=== PATIENT | female | born 1970 | race Caucasian/White ===

== ENCOUNTER 2017-03-26 15:49 | Emergency (ER) | payer BC ==
[2017-03-26 15:49] VITALS: BMI 33.3
[2017-03-26 16:00] VITALS: BP 145/92; PULSE 69; TEMP 98
--- NOTE | 2017-03-26 17:04 | ED PDOC ---
Arrival/HPI - General Chief Complaint: Lower Extremity Problem/Injury Time Seen by Provider: 03/26/17 15:58 Historian: Patient - History of Present Illness Narrative History of Present Illness (Text): 03/26/17 17:03 A 46 year old female with a past medical history of sciatica, presents to the emergency department with 1 month duration pain in the left foot heel. She states that it hurts when she stands, but is currently in no pain. She states that she wonders if the pain is due to her sciatica. She denies any trauma or injury, headache, dizziness, nausea, vomiting, diarrhea, chest pain, abdominal pain, or any other complaint. Time/Duration: Other (1 month) Symptom Course: Unchanged Activities at Onset: Rest, Light Context: Home Past Medical History - Provider Review Nursing Documentation Reviewed: Yes - Past History Past History: No Previous - Infectious Disease Hx of Infectious Diseases: None - Cardiac Hx Cardiac Disorders: Yes Hx Hypertension: Yes - Genitourinary/Gynecological Hx Genitourinary Disorders: Yes Other/Comment: over active bladder. - Psychiatric Hx Substance Use: No - Surgical History Hx Section: Yes (x2) - Anesthesia Hx Anesthesia: Yes Hx Anesthesia Reactions: No Hx Malignant Hyperthermia: No Family/Social History - Physician Review Nursing Documentation Reviewed: Yes Family/Social History: No Known Family HX Smoking Status: Never Smoked Hx Alcohol Use: No Hx Substance Use: No Allergies/Home Meds Allergies/Adverse Reactions: Allergies No Known Allergies Allergy (Verified 03/26/17 15:57) Home Medications: Home Meds Medication Instructions Recorded Confirmed Omeprazole [Omeprazole] 40 mg PO DAILY 03/26/17 03/26/17 amLODIPine [Norvasc] 10 mg PO DAILY 03/26/17 03/26/17 Review of Systems - Physician Review All systems were reviewed & negative as marked: Yes - Review of Systems Constitutional: absent: Fevers, Night Sweats Respiratory: absent: SOB Cardiovascular: absent: Chest Pain, Syncope Gastrointestinal: absent: Diarrhea, Nausea, Vomiting Musculoskeletal: Other (left foot heel pain) Neurological: absent: Headache, Dizziness Physical Exam Vital Signs Reviewed: Yes Vital Signs Temp Pulse Resp BP Pulse Ox 03/26/17 17:23 16 98 03/26/17 15:58 98.0 F 69 19 145/92 H 97 Temperature: Afebrile Blood Pressure: Hypertensive Pulse: Regular Respiratory Rate: Normal Appearance: Positive for: Well-Appearing, Non-Toxic, Comfortable Pain Distress: None Mental Status: Positive for: Alert and Oriented X 3 - Systems Exam Head: Present: Atraumatic, Normocephalic Pupils: Present: PERRL Extroacular Muscles: Present: EOMI Conjunctiva: Present: Normal Mouth: Present: Moist Mucous Membranes Neck: Present: Normal Range of Motion Respiratory/Chest: Present: Clear to Auscultation, Good Air Exchange. No: Respiratory Distress, Accessory Muscle Use Cardiovascular: Present: Regular Rate and Rhythm, Normal S1, S2. No: Murmurs Abdomen: Present: Normal Bowel Sounds. No: Tenderness, Distention, Peritoneal Signs Back: Present: Normal Inspection Upper Extremity: Present: Normal Inspection. No: Cyanosis, Edema Lower Extremity: Present: Normal Inspection. No: Edema Neurological: Present: GCS=15, CN II-XII Intact, Speech Normal Skin: Present: Warm, Dry, Normal Color. No: Rashes Psychiatric: Present: Alert, Oriented x 3, Normal Insight, Normal Concentration Medical Decision Making ED Course and Treatment: 03/26/17 17:09 Impression: A 46 year old female with one month duration pain in the left foot heel that hurts when she stands, but is currently in no pain. Differential Diagnosis included but are not limited to: Heel Pain Plan: -- Left Foot X-Ray -- Toradol -- Reassess and disposition Prior Visits: Notes and results from previous visits were reviewed. Patient was last seen in the emergency department on Progress Notes: 03/26/17 17:00: Left Foot X-Ray Normal 03/26/17 17:00: Will discharge home. Advised to take Naproxen for pain and to f/ u with her v[facility]. She said she previously saw a [facility] who gave her in injection. She will try that again. - RAD Interpretation Radiology Orders: 03/26/17 16:06 FOOT LEFT 3 VIEWS ROUTINE [RAD] Stat - Medication Orders Current Medication Orders: Discontinued Medications Ketorolac Tromethamine (Toradol) 60 mg IM STAT STA Stop: 03/26/17 17:13 Last Admin: 03/26/17 17:23 Dose: 60 mg - Scribe Statement The provider has reviewed the documentation as recorded by the Marlen Donald Provider Scribe Attestation: All medical record entries made by the Scribe were at my direction and personally dictated by me. I have reviewed the chart and agree that the record accurately reflects my personal performance of the history, physical exam, medical decision making, and the department course for this patient. I have also personally directed, reviewed, and agree with the discharge instructions and disposition. Disposition/Present on Arrival - Present on Arrival Any Indicators Present on Arrival: No History of DVT/PE: No History of Uncontrolled Diabetes: No Urinary Catheter: No History of Decub. Ulcer: No History Surgical Site Infection Following: None - Disposition Have Diagnosis and Disposition been Completed?: Yes Diagnosis: Heel pain Disposition: HOME/ ROUTINE Disposition Time: 17:39 Patient Plan: Discharge Condition: IMPROVED Discharge Instructions (ExitCare): Arthralgia (ED) Additional Instructions: Ms Christy, thank you for letting us take care of you today. Your provider was Dr. Murdock. You were treated for Heel Pain. The emergency medical care you received today was directed at your acute symptoms. If you were prescribed any medication, please fill it and take as directed. It may take several days for your symptoms to resolve. Return to the Emergency Department if your symptoms worsen, do not improve, or if you have any other problems. Please contact your doctor or call one of the physicians/clinics you have been referred to that are listed on the Patient Visit Information form that is included in your discharge packet. Bring any paperwork you were given at discharge with you along with any medications you are taking to your follow up visit. Our treatment cannot replace ongoing medical care by a primary care provider (PCP) outside of the emergency department. Thank you for allowing the [facility] team to be part of your care today. If you had an X-Ray or CT scan: A Radiologist will review the ED reading if any change in treatment is needed we will contact you. If you had a blood, urine, or wound culture: It will take several days for the results, if any change in treatment is needed we will contact you. If you had an STI test: It will take 48 hours for the results. Please call after 1 week if you have not heard back. Prescriptions: Naproxen 500 mg PO BID PRN #30 tab PRN Reason: Pain, Moderate (4-7) Referrals: Holland Hutchinson MD [Primary Care Provider] - Follow up with primary Forms: [employer] (Ecuadorean), WORK NOTE
[2017-03-26 17:24] VITALS: RESP 16; O2SAT 98
--- NOTE | 2017-03-27 08:14 | RAD ---
PROCEDURE: Left Foot Radiographs. HISTORY: left heel pain COMPARISON: None. FINDINGS: BONES: Normal. No fracture. JOINTS: Normal. SOFT TISSUES: Normal. OTHER FINDINGS: None. IMPRESSION: Normal left foot radiographs.
== END 2017-03-26 17:24 | disposition home or self-care (01) ==
LOC: ED 15:49
DX: M79.672 Pain in left foot (principal)
CPT/HCPCS: 73630; 96372; 99283; J1885

== ENCOUNTER 2017-08-11 23:06 | Emergency (ER) | payer BC ==
[2017-08-11 23:06] VITALS: BMI 33.3
[2017-08-11 23:31] VITALS: TEMP 97.4
--- NOTE | 2017-08-11 23:36 | ED PDOC ---
Arrival/HPI - General Chief Complaint: Back Pain Time Seen by Provider: 08/11/17 23:09 Historian: Patient - History of Present Illness Narrative History of Present Illness (Text): 08/11/17 23:36 46 year old female, whose past medical history includes sciatica, presents to the emergency department complaining of sudden mid back pain for the past 8-9 hours. Patient reports the pain worsens when she takes deep breathes. pain is her left upper back to left flank. Patient denies any injuries. Patient denies any fevers, chills, chest pain, shortness of breath, abdominal pain, nausea, vomiting, diarrhea, neck pain, urinary/bowel changes, headache, dizziness, or any other complaint. PMD: Dr. Hutchinson 08/12/17 03:11 Time/Duration: Other (8-9 hours) Symptom Onset: Sudden Symptom Course: Unchanged Activities at Onset: Light Context: Home Past Medical History - Provider Review Nursing Documentation Reviewed: Yes - Past History Past History: No Previous - Infectious Disease Hx of Infectious Diseases: None - Cardiac Hx Cardiac Disorders: Yes Hx Hypertension: Yes - Genitourinary/Gynecological Hx Genitourinary Disorders: Yes Other/Comment: over active bladder. - Psychiatric Hx Substance Use: No - Surgical History Hx Section: Yes (x2) - Anesthesia Hx Anesthesia: Yes Hx Anesthesia Reactions: No Hx Malignant Hyperthermia: No Family/Social History - Physician Review Nursing Documentation Reviewed: Yes Family/Social History: No Known Family HX Smoking Status: Never Smoked Hx Alcohol Use: No Hx Substance Use: No Allergies/Home Meds Allergies/Adverse Reactions: Allergies No Known Allergies Allergy (Verified 03/26/17 15:57) Home Medications: Home Meds Medication Instructions Recorded Confirmed Omeprazole [Omeprazole] 40 mg PO DAILY 03/26/17 08/11/17 amLODIPine [Norvasc] 10 mg PO DAILY 03/26/17 08/11/17 Review of Systems - Physician Review All systems were reviewed & negative as marked: Yes - Review of Systems Constitutional: absent: Fevers, Other (Chills) Respiratory: absent: SOB Cardiovascular: absent: Chest Pain Gastrointestinal: absent: Diarrhea, Nausea, Vomiting Genitourinary Female: absent: Dysuria, Frequency, Hematuria Musculoskeletal: Back Pain. absent: Neck Pain Neurological: absent: Headache, Dizziness Physical Exam Vital Signs Reviewed: Yes Vital Signs Temp Pulse Resp BP Pulse Ox 08/12/17 02:05 68 17 132/74 100 08/12/17 01:06 70 17 135/75 100 08/11/17 23:06 97.4 F L 71 19 140/99 H 99 Temperature: Afebrile Blood Pressure: Hypertensive Pulse: Regular Respiratory Rate: Normal Appearance: Positive for: Well-Appearing, Non-Toxic, Comfortable Pain Distress: None Mental Status: Positive for: Alert and Oriented X 3 - Systems Exam Head: Present: Atraumatic, Normocephalic Pupils: Present: PERRL Extroacular Muscles: Present: EOMI Conjunctiva: Present: Normal Mouth: Present: Moist Mucous Membranes Neck: Present: Normal Range of Motion Respiratory/Chest: Present: Clear to Auscultation, Good Air Exchange. No: Respiratory Distress, Accessory Muscle Use Cardiovascular: Present: Regular Rate and Rhythm, Normal S1, S2. No: Murmurs Abdomen: Present: Normal Bowel Sounds. No: Tenderness, Distention, Peritoneal Signs Back: Present: Normal Inspection, Other (Parathoracic Tenderness). No: CVA Tenderness Upper Extremity: Present: Normal Inspection. No: Cyanosis, Edema Lower Extremity: Present: Normal Inspection. No: Edema Neurological: Present: GCS=15, CN II-XII Intact, Speech Normal Skin: Present: Warm, Dry, Normal Color. No: Rashes Psychiatric: Present: Alert, Oriented x 3, Normal Insight, Normal Concentration Medical Decision Making ED Course and Treatment: 08/11/17 23:36 Impression: 46 year old female presents complaining of mid back pain that worsens when breathing for the past 8-9 hours. consider pe, msk pain, renal colic. Plan: -- Labs -- Chest X-ray Two Views -- Toradol -- HCG, Qualit Urine -- Urinalysis -- Urinalysis W/ Micro -- Reassess and disposition Prior Visits: Notes and results from previous visits were reviewed. Patient was last seen in the emergency department on 03/26/17 presents complaining of 1 month duration of left foot heel pain. Progress Notes: 08/11/17 23:58 EKG shows NSR at [address]/T wave changes. Interpreted by me. 08/12/17 00:27 CXR Impression: As read by EVIE hernandez. 08/12/17 00:36 Labs were reviewed and showed D-Dimer, Quantitative 290 and small blood in Urine. Plan: -- CT Abd & Pelvis -- CT Angio Chest PE Protocol 08/12/17 01:38 Patient is currently eating Domlucía tuckera with no acute distress. EXAM: CT Abdomen and Pelvis Without Intravenous Contrast Dictated and Authenticated by: Cortez Do MD 08/12/2017 1:43 AM IMPRESSION: 1. Right ovarian hypodense cyst measuring 4.4 x 5.2 cm.If clinically warranted, a pelvic ultrasound may be helpful for further assessment. 08/12/17 01:[address] abdomen and Pelvis results with the patient. Patient reports known history of the cyst. She declined ultrasound for further evaluation. There is no right adenexal tenderness. EXAM: CT Angiography Chest With Intravenous Contrast Dictated and Authenticated by: Cortez Do MD 08/12/2017 1:58 AM IMPRESSION: 1. No active disease. 2. No CT evidence for pulmonary embolus. 08/12/17 02:01 On re-evaluation, patient feels better and is in no acute distress. Patient denies any urinary symptoms. I have discussed the results and plan with the patient, who expresses understanding. Patient in agreement with plan to be discharged home. Patient is stable for discharge. Patient was instructed to follow up with physician or return if symptoms worsen or new concerning symptoms arise. 08/12/17 03:12 - Lab Interpretations Lab Results: 08/11/17 23:50 08/11/17 23:50 Lab Results 08/11/17 23:50: Urine Color Yellow, Urine Appearance Sl cloudy, Urine pH 7.5, Ur Specific Toyah 1.010, Urine Protein Negative, Urine Glucose (UA) Negative, Urine Ketones Negative, Urine Blood Small H, Urine Nitrate Negative, Urine Bilirubin Negative, Urine Urobilinogen 0.2, Ur Leukocyte Esterase Large H, Urine RBC 1 - 3, Urine WBC 5 - 10, Ur Epithelial Cells 4 - 5, Urine Bacteria Few , Urine HCG, Qual Negative 08/11/17 23:50: Sodium 141, Potassium 3.4 L, Chloride 105, Carbon Dioxide 24, Anion Gap 14, BUN 7, Creatinine 0.7, Est GFR ( Amer) > 60, Est GFR (Non- Af Amer) > 60, Random Glucose 92, Calcium 9.4, Total Bilirubin 0.3, AST 27, ALT 24, Alkaline Phosphatase 41, Total Protein 8.1, Albumin 4.6, Globulin 3.4, Albumin/Globulin Ratio 1.3 08/11/17 23:50: PT 11.3, INR 1.04, APTT 30.8, D-Dimer, Quantitative 290 H 08/11/17 23:50: WBC 5.1, RBC 4.72, Hgb 13.3, Hct 39.4, MCV 83.5, MCH 28.2, MCHC 33.8, RDW 13.7, Plt Count 243, MPV 10.4, Gran % 40.5 L, Lymph % (Auto) 47.3 H, Lane % (Auto) 8.8 H, Eos % (Auto) 2.4, Baso % (Auto) 1.0, Gran # 2.06, Lymph # 2.4, Lane # 0.5, Eos # 0.1, Baso # 0.05 I have reviewed the lab results: Yes - RAD Interpretation Radiology Orders: 08/11/17 23:33 CHEST TWO VIEWS (PA/LAT) [RAD] Stat 08/12/17 00:36 ABD & PELVIS W/O PO OR IV CONT [CT] Stat ANGIO CHEST PE PROTOCOL [CT] Stat - Medication Orders Current Medication Orders: Discontinued Medications Ketorolac Tromethamine (Toradol) 30 mg IVP STAT STA Stop: 08/11/17 23:35 Last Admin: 08/11/17 23:59 Dose: 30 mg [facility] Pain Assessment Document 08/11/17 23:59 JOL (Rec: 08/12/17 00:00 [id number] Pain Reassessment Is this a pain reassessment? No Sleep Is patient sleeping during reassessment? No Presence of Pain Presence of Pain Yes Pain Scale Used Pain Scale Used Numeric Location Left, Right or Bilateral Right Upper or Lower Upper Pain Location Body Site Back Description Intensity of Pain at present 8 Pain Behavior Guarding Restlessness Facial Grimacing IVP Administration Document 08/11/17 23:59 JOL (Rec: 08/12/17 00:00 [id number]) Charges for Administration # of IVP Administrations 1 Re-Assess: [facility] Pain Assessment Document 08/12/17 00:59 JOL (Rec: 08/12/17 01:26 [id number] Pain Reassessment Is this a pain reassessment? Yes Sleep Is patient sleeping during reassessment? No Presence of Pain Presence of Pain No - Scribe Statement The provider has reviewed the documentation as recorded by the Marlen Gaspar Provider Scribe Attestation: All medical record entries made by the Scribe were at my direction and personally dictated by me. I have reviewed the chart and agree that the record accurately reflects my personal performance of the history, physical exam, medical decision making, and the department course for this patient. I have also personally directed, reviewed, and agree with the discharge instructions and disposition. Disposition/Present on Arrival - Present on Arrival Any Indicators Present on Arrival: No History of DVT/PE: No History of Uncontrolled Diabetes: No Urinary Catheter: No History of Decub. Ulcer: No History Surgical Site Infection Following: None - Disposition Have Diagnosis and Disposition been Completed?: Yes Diagnosis: Back pain, Ovarian cyst Disposition: HOME/ ROUTINE Disposition Time: 03:00 Condition: STABLE Discharge Instructions (ExitCare): Ovarian Cyst (ED), Back Pain (ED) Additional Instructions: return to er with worsening symptoms or concerns. you are declining an ultrasound at this time, however you should obtain one as an outpatient. return to any er at any point with any concern. Referrals: Lavonne Quintana MD [Staff Provider] - Follow up with primary Forms: [employer] ([place] Leone[place])
[2017-08-12 00:06] LABS: PH,URINE 7.5 (4.7-8.0); URINE BILIRUBIN NEGATIVE (NEGATIVE); URINE BLOOD SMALL (NEGATIVE); URINE GLUCOSE (UA) NEGATIVE (NEGATIVE); URINE KETONE NEGATIVE (NEGATIVE); URINE LEUKOCYTE ESTERASE LARGE Leu/uL (NEGATIVE); URINE PROTEIN NEGATIVE mg/dL (<30 mg/dL); URINE UROBILINOGEN 0.2 E.U./dL (<1 E.U./dL)
[2017-08-12 00:11] LABS: INR 1.04 (0.93-1.08); PARTIAL THROMBOPLASTIN TIME 30.8 Seconds (25.1-36.5)
[2017-08-12 00:15] LABS: BASO # 0.05 K/mm3 (0.0-2.0); EOS # 0.1 (0.0-0.7); EOS % 2.4 % (1.5-5.0); GRAN # 2.06 (1.4-6.5); GRAN % 40.5 % (50.0-68.0); HEMATOCRIT 39.4 % (36.0-48.0); LYMPH # 2.4 (1.2-3.4); LYMPH % 47.3 % (22.0-35.0); MEAN CELL VOLUME 83.5 fl (80.0-105.0); MEAN CORPUSCULAR HEMOGLOBIN 28.2 pg (25.0-35.0); MEAN CORPUSCULAR HGB CONC 33.8 g/dl (31.0-37.0); MEAN PLATELET VOLUME 10.4 fl (7.0-11.0); MONO # 0.5 (0.1-0.6); MONO % 8.8 % (1.0-6.0); RED CELL DISTRIBUTION WIDTH 13.7 % (11.5-14.5); URINE COLOR YELLOW (YELLOW); WHITE BLOOD COUNT 5.1 10^3/ul (4.5-11.0)
[2017-08-12 00:16] LABS: URINE APPEARANCE SL CLOUDY (CLEAR)
[2017-08-12 00:20] LABS: URINE BACTERIA FEW (NEG)
[2017-08-12 00:36] LABS: ALB/GLOB RATIO 1.3 (1.1-1.8); ALKALINE PHOSPHATASE 41 U/L (38-126); ALT/SGPT 24 U/L (7-56); AST/SGOT 27 U/L (14-36); BILIRUBIN,TOTAL 0.3 mg/dL (0.2-1.3); BLOOD UREA NITROGEN 7 mg/dL (7-21); CALCIUM 9.4 mg/dL (8.4-10.5); CARBON DIOXIDE 24 mmol/L (21-33); CHLORIDE 105 mmol/L (98-107); GFR AFRICAN-AMERICAN > 60; GLUCOSE,RANDOM 92 mg/dL (70-110); POTASSIUM 3.4 mmol/L (3.6-5.0); SODIUM 141 mmol/L (132-148); TOTAL PROTEIN 8.1 g/dL (5.8-8.3)
[2017-08-12] MEDS ORDERED: Iodixanol 320 MG/ML 100 ML BOTTLE IV ONE (00:56)
--- NOTE | 2017-08-12 01:43 | CT ---
EXAM: CT Abdomen and Pelvis Without Intravenous Contrast CLINICAL HISTORY: 46 years old, female; Pain; Abdominal pain; Flank; Left; Additional info: Left flank pain TECHNIQUE: Axial computed tomography images of the abdomen and pelvis without intravenous contrast. All CT scans at this facility use one or more dose reduction techniques, viz.: automated exposure control; ma/kV adjustment per patient size (including targeted exams where dose is matched to indication; i.e. head); or iterative reconstruction technique. 671 images are submitted.Limitations: Absence of IV contrast decreases sensitivity for detecting vascular and visceral injury and abnormality. Coronal and sagittal reformatted images were created and reviewed. COMPARISON: No relevant prior studies available. FINDINGS: Lower thorax: No acute findings. ABDOMEN: Liver: Unremarkable. Gallbladder and bile ducts: Contracted gallbladder with gallbladder wall thickening. Pancreas: Unremarkable. No ductal dilation. Spleen: Unremarkable. No splenomegaly. Adrenals: Unremarkable. No mass. Kidneys and ureters: Unremarkable. No obstructing stones. No hydronephrosis. Stomach and bowel: Nonspecific gastric thickening likely due to under distention. Correlation with clinical data is recommended if gastritis is clinically suspected. There is stool like appearance to the distal small bowel. This may represent slow transit. Moderate amount of stool in the colon. Appendix: Normal appendix. PELVIS: Bladder: Partially distended bladder. Reproductive: Right ovarian hypodense cyst measuring 4.4 x 5.2 cm. Lobular fundus of the uterus may represent uterine fibroid. Unremarkable left ovary. ABDOMEN and PELVIS: Intraperitoneal space: Unremarkable. No free air. No significant fluid collection. Bones/joints: No acute fracture. No dislocation. Soft tissues: Unremarkable. Vasculature: Unremarkable. No abdominal aortic aneurysm. Lymph nodes: Unremarkable. No enlarged lymph nodes. IMPRESSION: 1. Right ovarian hypodense cyst measuring 4.4 x 5.2 cm.If clinically warranted, a pelvic ultrasound may be helpful for further assessment.
[2017-08-12 01:51] VITALS: RESP 17; O2SAT 100
--- NOTE | 2017-08-12 01:58 | CT ---
EXAM: CT Angiography Chest With Intravenous Contrast CLINICAL HISTORY: 46 years old, female; Signs and symptoms; Shortness of breath; Prior surgery; Surgery date: 6+ months; Surgery type: C section x2; Additional info: SOB elevated dimer TECHNIQUE: Axial computed tomographic angiography images of the chest with intravenous contrast using pulmonary embolism protocol. All CT scans at this facility use one or more dose reduction techniques, viz.: automated exposure control; ma/kV adjustment per patient size (including targeted exams where dose is matched to indication; i.e. head); or iterative reconstruction technique. 1007 images are submitted. MIP reconstructed images were created and reviewed. Coronal and sagittal reformatted images were created and reviewed. CONTRAST: 96 mL of VISI 320 administered intravenously. COMPARISON: No relevant prior studies available. FINDINGS: Pulmonary arteries: No CT evidence for pulmonary embolus. Aorta: Bovine aortic arch. No thoracic aortic aneurysm. Lungs: Unremarkable. No mass. No consolidation. Pleural space: Unremarkable. No significant effusion. No pneumothorax. Heart: Unremarkable. No cardiomegaly. No significant pericardial effusion. Bones/joints: No acute fracture. No dislocation. Soft tissues: Unremarkable. Lymph nodes: Small hilar lymph nodes. Adrenals: Partially seen normal adrenal glands. Stomach and bowel: Upper thoracic esophageal diverticulum seen on image 19 series 4. IMPRESSION: 1. No active disease. 2. No CT evidence for pulmonary embolus.
[2017-08-12 02:56] VITALS: BP 132/74; PULSE 68
--- NOTE | 2017-08-12 09:38 | RAD ---
HISTORY: Chest pain COMPARISON: August 12, 2017. CT pulmonary angiogram negative for pulmonary embolism. TECHNIQUE: Chest PA and lateral FINDINGS: LUNGS: No active pulmonary disease. PLEURA: No significant pleural effusion identified. No pneumothorax apparent. CARDIOVASCULAR: Normal. OSSEOUS STRUCTURES: No significant abnormalities. VISUALIZED UPPER ABDOMEN: Normal. OTHER FINDINGS: None. IMPRESSION: No active disease.
--- NOTE | 2017-08-12 17:24 | CARD ---
APPROVED REPORT EKG Measurement Heart [id number] <Conclusion> Normal sinus rhythm Normal ECG
== END 2017-08-12 02:07 | disposition home or self-care (01) ==
LOC: ED 23:06
DX: M54.6 Pain in thoracic spine (principal); N83.201 Unspecified ovarian cyst, right side

== ENCOUNTER 2018-12-13 23:57 | Emergency (ER) | payer OTHER ==
[2018-12-13 23:58] VITALS: BMI 39.4
== END 2018-12-14 00:15 | disposition left against medical advice (07) ==
LOC: ED 23:57
DX: Z02.89 Encounter for other administrative examinations (principal); R22.0 Localized swelling, mass and lump, head